=== PATIENT | female | born 1940 | race Caucasian/White ===

== ENCOUNTER 2024-03-04 10:59 | Emergency (ER) | payer OTHER, SELFPAY ==
[2024-03-04 11:03] VITALS: BMI 26.9
[2024-03-04 11:06] VITALS: BP 157/146
--- NOTE | 2024-03-04 11:09 | CON.NEURO4 ---
Addendum entered and electronically signed by Tahir Casiano MD 03/04/24 13:38:
Studies reviewed.
I have personally examined the patient. I reviewed and agree with the DB2 DEVELOPER's Note.
My addenda:
Awake, alert, interactive. No acute distress.
Speech intact.
Follows 2-step requests w/o difficulty. No tremor.
Extra-ocular movements grossly intact.
Facial movements full and symmetric. Hearing intact to normal conversational volume.
Normal UE movements bilaterally.
Neck: full ROM.
Chest: no dyspnea
Heart: no JVD
Ext: (-) Clubbing, (-) Cyanosis, (-) Edema
IMPRESSIONS/RECOMMENDATIONS:
Abrupt onset of headache, subjective slurred speech, right V2 distribution facial numbness
Differential diagnosis includes acute ischemic stroke not visualized by urgent CT of head; migraine with aura; generalized anxiety with panic
Check MRI of brain
Provide prochlorperazine to treat patient's head discomfort
Attempt to lower patient's blood pressure to near normal
Consider initiation of antiplatelet agents based on MRI of brain results, okay to initiate aspirin 81 mg daily
Check lipid profile, initiate atorvastatin presuming elevated cholesterol levels
D/W patient / family
Will continue to follow patient.
Original Note:
Documented by User: Fransisca Jovel NP 03/04/24 12:02
Consultation - Neurology 4
-
CONSULTING PHYSICIAN: Tahir Casiano MD
REFERRING PHYSICIAN: ER/Dr. Dawn
DICTATED BY: COLETTE Calderon
DATE/TIME OF REQUEST: 03/04/24
DATE/TIME OF CONSULTATION: 03/04/24
Reason for Consultation: Stroke Alert
History of Present Illness:
This is an 84-year-old (left/right) handed female who has presented to the hospital with report of headache, slurred speech, and right facial numbness starting at 0700 this morning. Patient reports that she went to bed in her usual state around
2200 last evening (03/03/24) and woke up several times throughout the night to urinate and reports being at her baseline. At 0700 she work up and noticed that she had a posterior head/neck ache, right facial numbness, and her speech felt
slow/slightly slurred. She called her PCP who referred her to the ER for evaluation. A stroke alert was activated on arrival in the ER due to right facial numbness. CT head was obtained and is negative for any acute abnormalities. NIHSS is a 1 for
mild sensation change. The numbness is in her right face only along the V2-3 distribution. Her headache is posterior and at the top of her neck. She rates it a 6-7/10. She denies any photo/phonophobia and vomiting. Her speech also feels slow.
Patient denies any dizziness, vision changes, swallowing difficulty, weakness, chest pain, and palpitations. She reports shortness of breath and nausea. She reports a distant history of migraine with aura in her younger decades and then ocular
migraines in more recent decades. She hasn't had an ocular migraine in a long time, she can't remember exactly when her last one was. She denies any history of TIA or stroke and she is not taking any blood thinning medications.
Past Medical History: Migraine with aura, ocular migraines, vertigo, HLD, COPD, CKD, macular degeneration, [place], R 3rd digit trigger finger, osteoporosis, vitamin D deficiency, left cholesteatoma
Surgical History: L TKA, left tympanoplasty, right knee arthroscopy, b/l cataract removal, skin cancer removal, R radius ORIF
Family History: Reviewed and noncontributory.
Social History: Former smoker. Denies alcohol and illicit drug use.
Allergies: Augmentin, codeine, hydromorphone.
Home Medications: See below.
Review of Symptoms:
Patient denies any fever, chest pain, GI or symptoms.
�Per the HPI.�All systems are reviewed negative except above.
Physical Exam:
The patient is afebrile, abdomen is nondistended, breathing is unlabored, skin is warm and dry, no edema.
NIH Stroke Scale:
I performed the NIH stroke scale on the patient on 03/04/24 at 1115. The patient scored 1 points on the NIH stroke scale assessment, which were assigned as follows: See below.
Neurologic Examination:
The patient is awake, alert and oriented x 3. She is able to follow commands and answer questions appropriately. There is no aphasia or dysarthria. On cranial nerve assessment, pupils are 3 mm bilateral, round and reactive to light and
accommodation. Visual rod are full. Extraocular movements are intact. Facial sensations are intact and bilaterally symmetrical, there is no facial asymmetry. Hearing is diminished bilaterally to normal conversation volume (wears hearing aids).
Tongue palate and uvula are midline. Sternocleidomastoid strengths are full bilaterally. Motor strengths are 5/5 bilateral upper and lower extremities on medical research [place] scale. There is no drift or involuntary movement noted. Sensation of
touch is mildly reduced in the right face only. There was no extinction noted on double simultaneous stimulation. Coordination is intact by finger to nose bilaterally.
Lab Results: See below.
Neuro Imaging:
1. CT Head 03/04/24: No acute intracranial abnormalities appreciated. Mild atrophy and mild chronic small vessel change. Small infarcts can be difficult to exclude in the setting of chronic small vessel ischemic change. If clinical concern remains
high, consider MRI brain. ASPECT score 10/10
Differentials for the patient's presentation include:
1. Migraine with aura likely producing head discomfort and facial paresthesias.
2. Hypertension.
3. Low concern for stroke.
Patient has the following risk factors for their symptoms: Hx migraine with aura, occular migraines, age, HLD
IV Tenecteplase/IAT candidacy: She is not a candidate for TNK/IAT due to diagnosis more supportive of migraine with aura, low NIHSS.
Recommendations:
-Provide prochlorperazine 10mg IV x1 now for headache.
-If right facial numbness does not resolve with resolution of headache, would obtain MRI brain noncontrast and initiate aspirin 81mg daily.
-Shortness of breath evaluation per ER.
-Neurological checks per unit guidelines.
-Provide patient with a stroke education packet.
-DVT prophylaxis.
Discussed patient care with: Dr. Casiano, the patient
Vital Signs and Labs
-
Vital Signs and Labs:
Vital Signs
Temp Pulse Resp BP Pulse Ox
97.9 F 60 14 157/146 100
03/04/24 11:06 03/04/24 11:22 03/04/24 11:22 03/04/24 11:06 03/04/24 11:22
Lab Results
03/04/24 11:15
03/04/24 11:15
PT 13.0 Sec (11.4-14.6) 03/04/24 11:15
INR 1.00 03/04/24 11:15
APTT 28.6 Sec (23.4-35.0) 03/04/24 11:15
Sodium 135 mmol/L (135-145) 03/04/24 11:15
Potassium 4.8 mmol/L (3.5-5.1) 03/04/24 11:15
BUN 22 mg/dl (7-17) H 03/04/24 11:15
Glucose 94 mg/dl (70-99) 03/04/24 11:15
Calcium 10.4 mg/dl (8.4-10.2) H 03/04/24 11:15
Medications
-
Home Medications
�Medication �Instructions �Recorded
budesonide-formoterol HFA 80 2 puff inhalation R BID 10/12/19
mcg-4.5 mcg/actuation aerosol
inhaler (Symbicort)
meclizine 12.5 mg tablet 12.5 mg PO Q8HPRN PRN vertigo #15 10/13/19
tabs
hydrocodone 5 mg-acetaminophen 325 1 tab PO TID PRN pain #10 tabs 12/09/22
mg tablet
NIH Stroke Score
Subsequent NIH Scale
Date of Subsequent NIH Scale: 03/04/24
Time of Subsequent NIH Scale: 11:15
NIH Stroke Score
Level of Consciousness: 0 - Alert
LOC Questions: 0-Answers both correctly
LOC Commands: 0-Performs both correctly
Best Horizontal Gaze: 0-Normal
Visual Rod: 0=Normal, no visual loss
Facial Palsy: 0=Normal, symmetrical
Motor - Right Arm: 0=No drift 10 seconds
Motor - Left Arm: 0=No drift 10 seconds
Motor - Right Le-No drift 5 seconds
Motor - Left Le-No drift 5 seconds
Limb Ataxia: 0-Absent
Sensation: 1-Mild loss
Best Language: 0-No aphasia
Dysarthria: 0-Normal
Extinction and Inattention: 0-No abnormality
Total Score:: 1

Documented by User: Tahir Casiano MD 03/04/24 13:28
Consultation - Neurology 4
-
CONSULTING PHYSICIAN: Tahir Casiano MD
REFERRING PHYSICIAN: ER/Dr. Dawn
DICTATED BY: COLETTE Calderon
DATE/TIME OF REQUEST: 03/04/24
DATE/TIME OF CONSULTATION: 03/04/24
Reason for Consultation: Stroke Alert
History of Present Illness:
This is an 84-year-old (left/right) handed female who has presented to the hospital with report of headache, slurred speech, and right facial numbness starting at 0700 this morning. Patient reports that she went to bed in her usual state around
2200 last evening (03/03/24) and woke up several times throughout the night to urinate and reports being at her baseline. At 0700 she woke up and noticed that she had a posterior head/neck ache, right facial numbness, and her speech felt
slow/slightly slurred. She called her PCP who referred her to the ER for evaluation. A stroke alert was activated on arrival in the ER due to right facial numbness. CT head was obtained and is negative for any acute abnormalities. NIHSS is a 1 for
mild sensation change. The numbness is in her right face only along the V2-3 distribution. Her headache is posterior and at the top of her neck. She rates it a 6-7/10. She denies any photo/phonophobia and vomiting. Her speech also feels slow.
Patient denies any dizziness, vision changes, swallowing difficulty, weakness, chest pain, and palpitations. She reports shortness of breath and nausea. She reports a distant history of migraine with aura in her younger decades and then ocular
migraines in more recent decades. She hasn't had an ocular migraine in a long time, she can't remember exactly when her last one was. She denies any history of TIA or stroke and she is not taking any blood thinning medications.
Past Medical History: Migraine with aura, ocular migraines, vertigo, HLD, COPD, CKD, macular degeneration, [place], R 3rd digit trigger finger, osteoporosis, vitamin D deficiency, left cholesteatoma
Surgical History: L TKA, left tympanoplasty, right knee arthroscopy, b/l cataract removal, skin cancer removal, R radius ORIF
Family History: Reviewed and noncontributory.
Social History: Former smoker. Denies alcohol and illicit drug use.
Allergies: Augmentin, codeine, hydromorphone.
Home Medications: See below.
Review of Symptoms:
Patient denies any fever, chest pain, GI or symptoms.
�Per the HPI.�All systems are reviewed negative except above.
Physical Exam:
The patient is afebrile, abdomen is nondistended, breathing is unlabored, skin is warm and dry, no edema.
NIH Stroke Scale:
I performed the NIH stroke scale on the patient on 03/04/24 at 1115. The patient scored 1 points on the NIH stroke scale assessment, which were assigned as follows: See below.
Neurologic Examination:
The patient is awake, alert and oriented x 3. She is able to follow commands and answer questions appropriately. There is no aphasia or dysarthria. On cranial nerve assessment, pupils are 3 mm bilateral, round and reactive to light and
accommodation. Visual rod are full. Extraocular movements are intact. Facial sensations are intact and bilaterally symmetrical, there is no facial asymmetry. Hearing is diminished bilaterally to normal conversation volume (wears hearing aids).
Tongue palate and uvula are midline. Sternocleidomastoid strengths are full bilaterally. Motor strengths are 5/5 bilateral upper and lower extremities on medical research [place] scale. There is no drift or involuntary movement noted. Sensation of
touch is mildly reduced in the right face only. There was no extinction noted on double simultaneous stimulation. Coordination is intact by finger to nose bilaterally.
Lab Results: See below.
Neuro Imaging:
1. CT Head 03/04/24: No acute intracranial abnormalities appreciated. Mild atrophy and mild chronic small vessel change. Small infarcts can be difficult to exclude in the setting of chronic small vessel ischemic change. If clinical concern remains
high, consider MRI brain. ASPECT score 10/10
Differentials for the patient's presentation include:
1. Migraine with aura likely producing head discomfort and facial paresthesias.
2. Hypertension.
3. Low concern for stroke.
Patient has the following risk factors for their symptoms: Hx migraine with aura, occular migraines, age, HLD
IV Tenecteplase/IAT candidacy: She is not a candidate for TNK/IAT due to diagnosis more supportive of migraine with aura, low NIHSS.
Recommendations:
-Provide prochlorperazine 10mg IV x1 now for headache.
-If right facial numbness does not resolve with resolution of headache, would obtain MRI brain noncontrast and initiate aspirin 81mg daily.
-Shortness of breath evaluation per ER.
-Neurological checks per unit guidelines.
-Provide patient with a stroke education packet.
-DVT prophylaxis.
Discussed patient care with: Dr. Casiano, the patient
NIH Stroke Score
NIH Stroke Score
Total Score:: 1
--- NOTE | 2024-03-04 11:10 | ED.CVA ---
History of Present Illness
General
Chief Complaint: CVA/TIA Symptoms
Source: patient
Exam Limitations: none
Time Seen by Provider: 03/04/24 11:07
Nursing documentation reviewed up to this point in time: agreed with
Onset of Stroke Symptoms
Onset of symptoms known: Yes
Date of onset of symptoms: 03/04/24
Time of onset of symptoms: 07:00
Travel History
Have you had any contact with someone who has COVID-19?: No
Do you have any symptoms of coronavirus? Fever > 100 degrees, chills, cough, shortness of breath, sore throat, loss of taste or smell, muscle aches, or headache?: No
History of Present Illness
History of Present Illness:
84-year-old female presents emergency room complaining of right-sided facial numbness, slurred speech and headache in the back of her head. She states she frequently gets this type of headache, but does not get the right-sided facial numbness.
Stroke alert was called from triage.
Past History
Past History
ED Past Medical History: COPD
ED Past Surgical History: None
Social History
Tobacco: Former smoker
Review of Systems
Review of Systems
Allergies reviewed?: Yes
All Other Systems: Not applicable
Constitutional: Reports no symptoms
EENT: Reports no symptoms
Respiratory: Reports trouble breathing
Cardiac: Reports no symptoms
ABD/GI: Reports no symptoms
: Reports no symptoms
Musculoskeletal: Reports no symptoms
Skin: Reports no symptoms
Neurological: Reports numbness and other (Slurred speech)
Endocrine: Reports no symptoms
Hematologic/Lymphatic: Reports no symptoms
Psychiatric: Reports no symptoms
Phy Exam
Physical Exam
Physical Exam:
Physical Exam
General: no apparent distress, not acutely ill
Neck: supple. no meningeal signs. normal posterior pharynx
Heart: s1/s2 regular rate and rhythm, no murmur. equal radial
pulses.
HEENT: Pupils equal round reactive to light, EOMI
Lungs: no acute respiratory distress. clear bilaterally
Abdomen: normal bowel sounds. not tender. no CVAT
Neuro: alert and oriented. no focal neurological deficits cranial nerves II through XII intact
Skin: no rash
Psychiatric: well kept. interactive and cooperative
Extremities: no edema. no calf tenderness. negative homans. good distal pulses
Scores
NIH Stroke Score
Level of Consciousness: 0 - Alert
LOC Questions: 0-Answers both correctly
LOC Commands: 0-Performs both correctly
Best Horizontal Gaze: 0-Normal
Facial Palsy: 0=Normal, symmetrical
Motor - Right Arm: 0=No drift 10 seconds
Motor - Left Arm: 0=No drift 10 seconds
Motor - Right Le-No drift 5 seconds
Motor - Left Le-No drift 5 seconds
Limb Ataxia: 0-Absent
Sensation: 0-Normal
Best Language: 0-No aphasia
Dysarthria: 0-Normal
Extinction and Inattention: 0-No abnormality
Course
Orders/Labs/Results
Orders:
Orders
03/04/24 11:07
EKG [Electrocardiogram (*1)] Urgent
Reason for Study: TIA/Stroke
Electrocardiogram (*1) Stat
Reason for Study: Other
Other Reason for Exam: neuro symptoms
CT Head W/o Cont STROKE ALERT Urgent
Comment:
Reason For Exam: right facial numbness, headache
Cardiac Monitoring- Treatment ONCE
EKG- Treatment ONCE
IV Insert/Care/Rem.- Treatment PRN
Pulse Ox/cont/shift [RESP] Stat
Quantity: 1
03/04/24 11:08
EKG- Treatment ONCE
03/04/24 11:14
Ipratropium/Albuterol Sulfate [Duoneb] 3 ml INH R NOW STA
CR Chest - 2 Views Urgent
Comment:
Reason For Exam: short of breath
03/04/24 11:15
Cardiovascular Evaluation Urgent
Complete Blood Count/With Diff Urgent
Comprehensive Metabolic Panel Urgent
Erythrocyte Sed Rate Urgent
Comment: ADD ON
Ferritin Urgent
Comment: ADD ON
Folate Urgent
Comment: ADD ON
PTT Urgent
Prothrombin Time Urgent
TSH Reflex To Free T4 Urgent
Comment: ADD ON
Vitamin B12 Urgent
Comment: ADD ON
03/04/24 11:22
Prochlorperazine [Compazine] 10 mg IV NOW STA
03/04/24 12:29
Acetaminophen [Tylenol] 650 mg PO NOW STA
03/04/24 13:37
Add On- LAB Routine
Comments:: Please add to today's labs or draw as routine
Tests Added?: TSH reflex, Ferritin, Folate, Vit. B12, ESR, lipid profile
Abnormal Lab Results
03/04/24
11:15
BUN 22 H mg/dl
(7-17)
Calcium 10.4 H mg/dl
(8.4-10.2)
03/04/24 11:15
03/04/24 11:15
Vital Signs
Initial and Last Documented VS:
Initial Vital Signs
Temp Pulse Resp BP Pulse Ox
97.9 F 64 24 157/146 99
03/04/24 11:06 03/04/24 11:06 03/04/24 11:06 03/04/24 11:06 03/04/24 11:06
Last Documented Vital Signs
Temp Pulse Resp BP Pulse Ox
97.9 F 60 18 157/146 92
03/04/24 11:06 03/04/24 12:15 03/04/24 12:15 03/04/24 11:06 03/04/24 12:15
MDM/Problems Addressed
Differential Diagnosis Includes:
Intracranial hemorrhage, CVA, TIA, migraine
MDM/Problems Addressed:
84-year-old female with likely complex migraine. Doubt TIA or CVA. Patient seen by Dr. Casiano, who recommends discharge if patient is improved. Patient improved after DuoNeb as well.
Chronic conditions affecting care: COPD
Acute Exacerbation and/or Progression of Chronic Illness: COPD
*Radiology
Radiology exam reviewed: radiology read reviewed (CT head no acute findings)
*Pulse Oximetry
Patient hypoxic: no
*EKG
Interpreted by ED Provider?: Yes
EKG Intrepretation Date: 03/04/24
EKG Intrepretation Time: 11:24
Interpretation: normal
Comparison EKG: no changes
Heart Rate: 57
Rate: normal
Rhythm: sinus
[place]: normal axis
Interval: normal interval
QRS Pattern: normal QRS
Ischemia: no ischemia
*Customer Account Coordinator Interpretation
Rate: normal
Interpretation: normal
Heart Rate: 60
Rhythm: sinus
*Critical Care Note
Total Time (30-74mins, 75-104mins- exclusive of procedures): Not Applicable
Patient Management
Social determinants of health affecting care: Living situation
Discussion with other providers: Veterinary Physiologist (neurology)
Escalation/DeEscalation of care consider admission/obs:
admit not indicated
ED Attending Note
-
Portions of this chart may have been created with voice recognition software.� Occasional wrong word or��sound alike� substitutions may have occurred due to the inherent limitations of voice recognition software.
Discharge Plan
Departure
Patient Disposition: Home (Routine Discharge)
Date of Disposition: 03/04/24
Time of Disposition: 13:45
Patient with high blood pressure during this ER visit?: Yes
Condition: Good
Discharge Problem:
Atypical migraine
Instructions: Paresthesia (DC), Migraine in adults, BLOOD PRESSURE
Prescriptions:
No Action
spironolactone 50 mg Tablet
50 mg PO DAILY
multivitamin with iron [Hair Vitamins] Tablet
1 tab PO DAILY
cholecalciferol (vitamin D3) [Vitamin D3] 25 mcg (1,000 unit) Tablet
25 mcg PO DAILY
budesonide-formoterol [Symbicort] 80-4.5 mcg/actuation Hfa Aerosol Inhaler
2 inh INHALATION R BID
PreserVision AREDS 2,148 mcg-113 mg-45 mg-17.4mg Tablet
1 tab PO DAILY
Referrals:
Shannon Escalante MD [Family Provider] - Call in 1-3 days for appt
Interventions
Interventions:
*Risk Screen - Suicide Last Done: 03/04/24 11:03
*General Assessment Last Done: 03/04/24 11:03
*Neglect/Abuse Screening Last Done: 03/04/24 11:03
ED- Fall Risk Assessment Last Done: 03/04/24 11:17
ED- Pulmonary Assessment Last Done: 03/04/24 11:17
ED- Neurological Assessment Last Done: 03/04/24 11:17
ED- Cardiac Assessment Last Done: 03/04/24 11:17
ED Swallowing Screen Last Done: 03/04/24 11:17
Discharge Date and Time
Print Language: [place]IZ[place]
[2024-03-04 11:15] LABS: Glucose - Point of Care 92 mg/dl (70-99)
[2024-03-04 11:22] LABS: % Basophils 0.5 % (0-2); % Eosinophils 1.4 % (0-6); % Immature Granulocytes 0.3 % (0-0.5); % Lymphocytes 22.2 % (20.5-51.1); % Monocytes 7.9 % (1.7-9.3); % Neutrophils 67.7 % (42.2-75.2); Absolute Eosinophils 0.1 10^3/uL (0-0.7); Absolute Lymphocytes 1.3 10^3/uL (1.2-3.4); Absolute Monocytes 0.5 10^3/uL (0.1-0.6); Absolute Neutrophils 3.9 10^3/uL (1.4-6.5); Hematocrit 39.2 % (37.0-47.0); Hemoglobin 13.2 g/dL (12.0-16.0); Mean Corp Hgb Conc. 33.7 g/dL (33.0-37.0); Mean Corpuscular Volume 86.2 fL (81.0-99.0); Mean Platelet Volume 9.3 fL (7.4-10.4); Nucleated Red Blood Cells % 0 %; Platelet Count 266 10^3/uL (130-400); Red Blood Cell Count 4.55 10^6/uL (4.20-5.40); Red Cell Dist. Width 12.9 % (11.5-14.5); White Blood Cell Count 5.8 10^3/uL (4.8-10.8)
[2024-03-04] MEDS: COMPAZINE 10 MG IV (11:28)
[2024-03-04] MEDS: DUONEB 3 ML INH (11:28)
[2024-03-04 11:30] LABS: ALT (SGPT) 19 U/L (0-35); AST (SGOT) 26 U/L (14-36); Albumin 4.4 g/dl (3.5-5.0); Alkaline Phosphatase 104 U/L (38-126); Blood Urea Nitrogen 22 mg/dl (7-17); Calcium 10.4 mg/dl (8.4-10.2); Carbon Dioxide 27 mmol/L (22-30); Chloride 100 mmol/L (98-107); Estimated Creatinine Clearance 42 ml/min; Glucose 94 mg/dl (70-99); Potassium 4.8 mmol/L (3.5-5.1); Sodium 135 mmol/L (135-145); Total Bilirubin 0.7 mg/dl (0.2-1.3); Total Protein 7.3 g/dl (6.3-8.2); eGFR > 60.00
[2024-03-04 11:33] LABS: APTT 28.6 Sec (23.4-35.0)
[2024-03-04 12:27] VITALS: BP 122/67
[2024-03-04 12:30] VITALS: BP 124/53
[2024-03-04] MEDS: TYLENOL 650 MG PO (12:33)
[2024-03-04 13:12] VITALS: BP 126/59
[2024-03-04 13:30] VITALS: BP 122/59
[2024-03-04 14:05] LABS: Erythrocyte Sed Rate 15 mm/hour (0-20)
[2024-03-04 14:10] LABS: HDL Cholesterol 78 mg/dl; LDL Cholesterol, Calculated 126 mg/dl; Total Cholesterol 236 mg/dl (50-199); Triglyceride 163 mg/dl (10-149); Very Low Density Lipoprotein 32 mg/dl (0-30)
[2024-03-04 15:53] LABS: TSH Reflex To Free T4 0.15 uIU/ml (0.47-4.68)
[2024-03-04 15:58] LABS: Ferritin 25.7 ng/ml (11.1-264.0)
[2024-03-04 16:20] LABS: Free T4 1.02 ng/dl (0.78-2.19)
[2024-03-04 16:29] LABS: Vitamin B12 387 pg/ml (239-931)
== END 2024-03-04 14:02 | disposition home or self-care (01) ==
LOC: EMR 10:59
PROVIDERS: EMERGENCY PHYSICIAN Emergency Medicine; FAMILY PHYSICIAN Internal Medicine
DX: G43.009 Migraine without aura, not intractable, without status migrainosus (principal); E78.00 Pure hypercholesterolemia, unspecified; J44.9 Chronic obstructive pulmonary disease, unspecified; N18.9 Chronic kidney disease, unspecified; M81.0 Age-related osteoporosis without current pathological fracture; E55.9 Vitamin D deficiency, unspecified; H71.92 Unspecified cholesteatoma, left ear; M65.30 Trigger finger, unspecified finger; H35.30 Unspecified macular degeneration; Z87.891 Personal history of nicotine dependence; Z88.0 Allergy status to penicillin; Z88.1 Allergy status to other antibiotic agents; Z88.5 Allergy status to narcotic agent; Z96.653 Presence of artificial knee joint, bilateral
CPT/HCPCS: 99284; 94640; 96374; 70450; 71046; 80053; 80061; 82607; 82728; 82746; 82962; 84439; 84443; 85025; 85610; 85652; 85730; 93005

== ENCOUNTER → 2024-07-02 10:06 | Outpatient (REF) | payer OTHER, SELFPAY | LOC: HWWDC 10:06 | PROVIDERS: ATTENDING PHYSICIAN Internal Medicine | DX: Z12.31 Encounter for screening mammogram for malignant neoplasm of breast (principal); J44.9 Chronic obstructive pulmonary disease, unspecified | CPT/HCPCS: 77063; 77067 ==

== ENCOUNTER → 2024-07-07 10:19 | Outpatient (REF) | payer OTHER, SELFPAY | LOC: HWRAD 10:19 | PROVIDERS: ATTENDING PHYSICIAN Internal Medicine | DX: M25.552 Pain in left hip (principal) | CPT/HCPCS: 73523 ==

== ENCOUNTER → 2025-04-13 14:06 | Outpatient (REF) | payer OTHER, SELFPAY | LOC: HWRAD 14:06 | PROVIDERS: ATTENDING PHYSICIAN Nurse Practitioner Family | DX: R05.9 Cough, unspecified (principal); K52.9 Noninfective gastroenteritis and colitis, unspecified | CPT/HCPCS: 71046 ==

== ENCOUNTER → 2025-08-13 10:33 | Outpatient (REF) | payer OTHER, SELFPAY | LOC: HWWDC 10:33 | PROVIDERS: ATTENDING PHYSICIAN Internal Medicine | DX: Z12.31 Encounter for screening mammogram for malignant neoplasm of breast (principal); M81.0 Age-related osteoporosis without current pathological fracture | CPT/HCPCS: 77063; 77067; 77080 ==